=== PATIENT | male | born 1995 | race Caucasian/White ===

== ENCOUNTER → 2018-01-06 | Outpatient (CLI) | payer BC ==
[2018-01-06 08:34] LABS: HCT 48.9 % (39.0-53.0); HGB 16.3 gm/dL (13.0-17.5); MCH 30.4 pg (25.0-35.0); MCHC 33.4 g/dL (31.0-37.0); Mean Platelet Volume 7.3; Platelet Count 245 k/uL (150-450); RBC 5.38 m/uL (4.30-5.90); RDW 12.5 % (11.5-15.5); WBC 8.7 k/uL (3.8-10.6)
[2018-01-06 09:27] LABS: ALT 37 U/L (21-72); AST 15 U/L (17-59); Albumin 4.3 g/dL (3.5-5.0); Alkaline Phosphatase 68 U/L (38-126); Anion Gap 10 mmol/L; Blood Urea Nitrogen 14 mg/dL (9-20); Calcium 9.3 mg/dL (8.4-10.2); Carbon Dioxide 26 mmol/L (22-30); Chloride 104 mmol/L (98-107); Glucose 109 mg/dL (74-99); Potassium 4.4 mmol/L (3.5-5.1); Sodium 140 mmol/L (137-145); Total Bilirubin 0.6 mg/dL (0.2-1.3); Total Protein 6.7 g/dL (6.3-8.2)
[2018-01-06 09:58] LABS: Prostate Specific Antigen 0.94 ng/mL (0.00-4.00)
[2018-01-06 19:42] LABS: ACTH 7.83 pg/mL (0.00-45.99)
== END | disposition home or self-care (01) ==
LOC: LABWHC1 08:09
PROVIDERS: ATTEND Internal Medicine Endocrinology, Diabetes & Metabolism
DX: E29.1 Testicular hypofunction (principal)
CPT/HCPCS: 36415; 80053; 82024; 82533; 82670; 83001; 83002; 84146; 84153; 84403; 84443; 85027

== ENCOUNTER → 2019-03-22 | Outpatient (CLI) | payer BC ==
[2019-03-22 10:06] LABS: Basophils # (A) 0.2 k/uL (0-0.2); Basophils % (A) 2 %; Eosinophils # (A) 0.2 k/uL (0-0.7); Eosinophils % (A) 2 %; HCT 50.7 % (39.0-53.0); HGB 17.1 gm/dL (13.0-17.5); Lymphocytes # (A) 2.3 k/uL (1.0-4.8); Lymphocytes % (A) 25 %; MCH 31.5 pg (25.0-35.0); MCHC 33.8 g/dL (31.0-37.0); Mean Platelet Volume 6.7; Monocytes # (A) 0.5 k/uL (0-1.0); Monocytes % (A) 6 %; Neutrophils # (A) 6.1 k/uL (1.3-7.7); Neutrophils % (A) 65 %; Platelet Count 270 k/uL (150-450); RBC 5.45 m/uL (4.30-5.90); RDW 12.4 % (11.5-15.5); WBC 9.4 k/uL (3.8-10.6)
[2019-03-22 16:56] LABS: African American GFR (CKD) 97.5 (60.0-200.0); Albumin 4.8 g/dL (3.80-4.90); Albumin/Globulin Ratio 2.82 (1.60-3.17); Anion Gap 9.7 mmol/L (4.00-12.00); BUN/Creat Ratio 12.5 Ratio (12.00-20.00); Calcium 9.6 mg/dL (8.7-10.3); Carbon Dioxide 27.3 mmol/L (21.6-31.8); Chol/HDL Ratio 3.11; Globulin 1.7 g/dL (1.6-3.3); LDL Cholesterol,Calculated 86.4 mg/dL (0.0-131.0); Potassium 4.4 mmol/L (3.5-5.5); Total Bilirubin 1.3 mg/dL (0.2-1.2); Total Protein 6.5 g/dL (6.2-8.2); VLDL Calculation 12.6 mg/dL (5.00-40.00)
[2019-03-22 17:02] LABS: T4, Free (Free Thyroxine) 1.3 ng/dL (0.80-1.80)
[2019-03-22 23:42] LABS: Creatinine 24 Hour,Urine 1.75 g/24Hr (1.00-2.00)
[2019-03-24 10:56] LABS: Urine VMA/Creatinine 24 Hour 1.7 gm/24h (1.0-2.0)
[2019-03-24 11:52] LABS: Dopamine 24 Hr Urine 352 ug/day (65-400); Epinephrine 24 Hr Urine 7 ug/day (0-20); Norepinephrine 24 Hr Urine 46 ug/day (15-80); Total Catecholamines Urine 53 ug/day (15-100); Urine Creatinine,24 Hr 1.7 gm/24h (1.0-2.0)
[2019-03-24 14:07] LABS: Metanephrines 24 Hour,Urine 220 ug/day (52-341); Normetanephrine 24 Hour,Urine 211 ug/day (88-444); Total Metanephrines 24 Hour,Ur 431 ug/day (140-785)
== END | disposition home or self-care (01) ==
LOC: LABWHC1 09:29
PROVIDERS: ATTEND Nurse Practitioner Family
DX: I10 Essential (primary) hypertension (principal)
CPT/HCPCS: 36415; 80053; 80061; 81050; 82384; 82570; 83835; 84439; 84443; 84585; 85025; 93005

== ENCOUNTER → 2019-03-31 | Outpatient (CLI) | payer BC ==
--- NOTE | 2019-03-31 16:48 | US ---
EXAMINATION TYPE: US renal artery duplex complet DATE OF EXAM: 03/31/2019 COMPARISON: NONE CLINICAL HISTORY: I10 Hypertension. HTN per patient x 2 years and now controlled with medication; joyce ing medication also for asthma, TIA x multiple per patient age 15 (protein issue per patient). MEASUREMENTS: RENAL SIZE: Rt Kidney: 10.1 x 5.8 x 4.4cm Lt Kidney: 10.8 x 5.8 x 5.5c, RESISTANCE INDEX Right: 0.57 mid Left: 0.63 mid RA/AO RATIO (< 3.5 ) Right: 1.7 Left: 1.7 RA VELOCITY ( < 180 cm/s) Right: 119.4 cm/s mid Left: 118.8cm/s mid Aorta: size appears wnl Right kidney: no hydro nephrosis or masses seen Left Kidney:no hydro nephrosis or masses seen Mid Renal Arteries are mildly tortuous, but PSV is wnl bilaterally. Incidental Finding: Inferior right lobe hyperechoic round mass suggests hemangioma (possible capillar y hemangioma as is hyperechoic to liver). Other etiologies within the liver to account for this find ing are not excluded. If clinically indicated, MRI could be performed. IMPRESSION: 1. No suspicious renal artery stenosis. 2. Suspected hemangioma within the inferior right tip of the liver.
== END | disposition home or self-care (01) ==
LOC: RADUSWWP 07:10
PROVIDERS: ATTEND Family Medicine
DX: I10 Essential (primary) hypertension (principal)
CPT/HCPCS: 93975

== ENCOUNTER → 2019-04-24 | Outpatient (CLI) | payer BC ==
--- NOTE | 2019-04-24 09:19 | MM ---
Reason for exam: clinical finding. History: Took other hormone for 1 year beginning at age 17. Physical Findings: Nurse did not find any significant physical abnormalities on exam. MG Diagnostic Mammo w CAD PRAKASH Bilateral CC and MLO view(s) were taken. The breast tissue is heterogeneously dense. This may lower the sensitivity of mammography. Extensive bilateral gynenomastia. Scattered coarse calcifications throughout the right breast. Bilateral ultrasound recommended. These results were verbally communicated with the patient and result sheet given to the patient on 04/24/19. ASSESSMENT: Incomplete: need additional imaging evaluation, BI-RAD 0 RECOMMENDATION: Ultrasound of both breasts.
--- NOTE | 2019-04-24 09:23 | USB ---
Reason for exam: clinical finding. History: Took other hormone for 1 year beginning at age 17. US Breast Limited BILAT Right limited breast ultrasound including focal area of concern, retroareolar and axilla demonstrates a 1.2 x 0.7cm solid, hypoechoic lesion at the posterior nipple, subareolar gynecomastia. Left limited breast ultrasound including focal area of concern, retroareolar and axilla demonstrates a 1.5 x 0.5cm solid, hypoechoic lesion at the posterior nipple, subareolar gynecomastia. Scanned bilateral axilla and zone A of the breasts. No solid or cystic lesion. These results were verbally communicated with the patient and result sheet given to the patient on 04/24/19. ASSESSMENT: Benign, BI-RAD 2 RECOMMENDATION: Clinical management of both breasts and clinical follow up recommended. Manage on a clinical basis with regard to right nipple discharge. Patient can be rescanned if spontaneous nipple discharge occurs. RAFAEL
== END | disposition home or self-care (01) ==
LOC: RADMAMWWP 07:56
PROVIDERS: ATTEND Family Medicine
DX: N62 Hypertrophy of breast (principal); R92.8 Other abnormal and inconclusive findings on diagnostic imaging of breast
CPT/HCPCS: 77066

== ENCOUNTER 2019-04-29 13:19 | Emergency (ER) | payer BC ==
[2019-04-29 13:24] VITALS: RESP 18; TEMP 97.7
[2019-04-29] MEDS ORDERED: SODIUM CHLORIDE 0.9% 1,000 ML IV STA (13:43)
[2019-04-29 13:52] LABS: Basophils # (A) 0.4 k/uL (0-0.2); Basophils % (A) 3 %; Eosinophils # (A) 0.3 k/uL (0-0.7); Eosinophils % (A) 3 %; HGB 17.9 gm/dL (13.0-17.5); Lymphocytes # (A) 2.4 k/uL (1.0-4.8); Lymphocytes % (A) 21 %; MCH 31.7 pg (25.0-35.0); MCHC 34.4 g/dL (31.0-37.0); Mean Platelet Volume 6.3; Monocytes # (A) 0.6 k/uL (0-1.0); Monocytes % (A) 5 %; Neutrophils # (A) 7.6 k/uL (1.3-7.7); Neutrophils % (A) 66 %; Platelet Count 285 k/uL (150-450); RBC 5.65 m/uL (4.30-5.90); RDW 12.3 % (11.5-15.5); WBC 11.5 k/uL (3.8-10.6)
--- NOTE | 2019-04-29 13:55 | ED ---
Chest Pain HPI - General Chief Complaint: Chest Pain Stated Complaint: chest pressure Time Seen by Provider: 04/29/19 13:25 Source: patient Mode of arrival: ambulatory Limitations: no limitations - History of Present Illness Initial Comments: Patient is a 23-year-old male presenting to the emergency department with complaints of chest pressure that started approximately 2 hours prior to arrival. Patient states he has a history of hypertension and is currently taking lisinopril at night. Patient had recent visit with his inspector multifocal lens last week secondary to hypertension and was also started on amlodipine. Patient does have an echo scheduled. Patient states it feels like someone is putting pressure onto his side of his chest. Patient denies sharp pains, shortness of breath, pain into his arms or numbness and tingling in his arms. Patient has history of asthma that he does take a daily steroid inhaler. Patient states approximately 1-1/2 weeks ago he did have a cough but that seemed to have subsided. Patient denies fever, chills. Patient has past medical history of multiple TIAs when he was approximately 15 years of age. He has no residual side effects from these. Patient has no other pertinent past medical history. Upon arrival to ER, Patient is slightly tachycardia at 104, BP is 158/106. Temp is normal, RR 18, 98%t on room air. - Related Data Previous Rx's Medication Instructions Recorded Cephalexin [Keflex] 500 mg PO Q8HR #30 cap 12/27/15 Azithromycin [Zithromax Z-pack] 0 mg PO DIRECTED #1 pack 04/29/19 Allergies Allergy/AdvReac Type Severity Reaction Status Date / Time No Known Allergies Allergy Verified 04/29/19 13:24 Review of Systems ROS Statement: Those systems with pertinent positive or pertinent negative responses have been documented in the HPI. ROS Other: All systems not noted in ROS Statement are negative. EKG Findings - EKG Comments: EKG Findings:: Ventricular rate 108, WV interval 124, QTC 447. Sinus tachycardia, otherwise normal EKG. Compared to previous EKG on 03/22/2019. Past Medical History Past Medical History: CVA/TIA, Hypertension History of Any Multi-Drug Resistant Organisms: None Reported Past Surgical History: No Surgical Hx Reported Past Psychological History: No Psychological Hx Reported Smoking Status: Current every day smoker Past Alcohol Use History: Occasional Past Drug Use History: Marijuana General Exam - General Exam Comments Initial Comments: GENERAL: Well-appearing, well-nourished and in no acute distress. HEAD: Atraumatic, normocephalic. EYES: Pupils equal round and reactive to light, extraocular movements intact, sclera anicteric, conjunctiva are normal. ENT: TMs normal, nares patent, oropharynx clear without exudates. Moist mucous membranes. NECK: Normal range of motion, supple without lymphadenopathy or JVD. LUNGS: Breath sounds clear to auscultation bilaterally and equal. No wheezes rales or rhonchi. HEART: Tachycardia rate and rhythm without murmurs, rubs or gallops. No pain with palpation of the chest. ABDOMEN: Soft, nontender, normoactive bowel sounds. No guarding, no rebound. No masses appreciated. EXTREMITIES: Normal range of motion, no pitting or edema. No clubbing or cyanosis. NEUROLOGICAL: Cranial nerves II through XII grossly intact. Normal speech, normal gait. PSYCH: Normal mood, normal affect. SKIN: Warm, Dry, normal turgor, no rashes or lesions noted. Limitations: no limitations Course Vital Signs 04/29/19 04/29/19 04/29/19 13:21 14:36 15:39 Temperature 97.7 F Pulse Rate 104 H 78 78 Respiratory 18 18 18 Rate Blood Pressure 158/106 173/100 143/94 O2 Sat by Pulse 98 97 98 Oximetry 04/29/19 16:08 Temperature 97.7 F Pulse Rate 78 Respiratory 18 Rate Blood Pressure 143/90 O2 Sat by Pulse 98 Oximetry Chest Pain [facility] Patient is a 23-year-old male presenting with chest pressure 2 hours prior to arrival. Patient does of history of hypertension and TIAs as well as asthma. Blood pressure upon arrival was in the 150s. Patient was also complaining about cough that has been present for about a week and a half but seems to be improving. CBC shows slight white count 11.5, initial coags were high however on redraw they were normal. D-dimer is normal. CMP is normal. Troponin and repeat troponin both normal. EKG shows slightly tachycardia otherwise a normal EKG. Chest x-ray shows a mild right lower lobe infiltrate that can be considered early pneumonia. Patient will be started on azithromycin. Patient was given fluids as well as labetalol which did lower his BP. Patient is stable for discharge at this time. Patient will follow up with his PCP as needed. Return parameters were discussed with the patient and he verbalized understanding. Case discussed with Dr. Stone. Disposition Clinical Impression: Atypical chest pain, Pneumonia Disposition: HOME SELF-CARE Condition: Stable Instructions (If sedation given, give patient instructions): Community Acquired Pneumonia (ED) Additional Instructions: Please return to the Emergency Department if symptoms worsen or any other dean rns. Take antibiotic as prescribed. Follow-up with PCP in one week to ensure improvement in symptoms. Prescriptions: Azithromycin [Zithromax Z-pack] 0 mg PO DIRECTED #1 pack Is patient prescribed a controlled substance at d/c from ED?: No Referrals: Michael Rao Jr, DO [Primary Care Provider] - 1-2 days
[2019-04-29 14:01] LABS: ALT 37 U/L (21-72); AST 19 U/L (17-59); African American GFR (CKD) >90 (>60 ml/min/1.73 sqM); Albumin 4.6 g/dL (3.5-5.0); Alkaline Phosphatase 62 U/L (38-126); Anion Gap 10 mmol/L; Blood Urea Nitrogen 12 mg/dL (9-20); Calcium 9.6 mg/dL (8.4-10.2); Carbon Dioxide 24 mmol/L (22-30); Chloride 104 mmol/L (98-107); Glucose 122 mg/dL (74-99); Magnesium 1.9 mg/dL (1.6-2.3); Potassium 4.2 mmol/L (3.5-5.1); Sodium 138 mmol/L (137-145); Total Protein 7.4 g/dL (6.3-8.2)
--- NOTE | 2019-04-29 14:02 | XR ---
EXAMINATION TYPE: XR chest 2V DATE OF EXAM: 04/29/2019 HISTORY: Chest Pain. REFERENCE: Previous study dated 04/16/1996. FINDINGS: There is a very questionable infiltrate in the right lower lobe lung. The left lung is javier r. Pleural space are clear. The heart is not enlarged. IMPRESSION: I CANNOT EXCLUDE A DEVELOPING RIGHT LOWER LUNG PNEUMONIA.
[2019-04-29 14:18] LABS: INR 3.9 (<1.2); Prothrombin Time 37.1 sec (9.0-12.0)
[2019-04-29 14:36] VITALS: PULSE 78
[2019-04-29 14:50] LABS: D-Dimer <0.17 mg/L FEU (<0.60)
[2019-04-29 14:54] LABS: Partial Thromboplastin Time >200.0 sec (22.0-30.0)
[2019-04-29] MEDS ORDERED: LABETALOL 5 MG/ML VIAL MDV IVP STA (15:10)
[2019-04-29 15:29] LABS: INR 1.1 (<1.2); Partial Thromboplastin Time 25.3 sec (22.0-30.0); Prothrombin Time 11.7 sec (9.0-12.0)
[2019-04-29 16:09] VITALS: BP 143/90
== END 2019-04-29 16:08 | disposition home or self-care (01) ==
LOC: EC 13:19
DX: J18.9 Pneumonia, unspecified organism (principal); R00.0 Tachycardia, unspecified; I10 Essential (primary) hypertension; J45.909 Unspecified asthma, uncomplicated; F17.200 Nicotine dependence, unspecified, uncomplicated; Z86.73 Personal history of transient ischemic attack (TIA), and cerebral infarction without residual deficits
CPT/HCPCS: 36415; 71046; 80053; 83735; 84484; 85025; 85379; 85610; 85730; 93005; 96361; 96374; 99285

== ENCOUNTER → 2019-06-30 | Outpatient (CLI) | payer BC ==
--- NOTE | 2019-06-30 08:50 | US ---
EXAMINATION TYPE: US liver DATE OF EXAM: 06/30/2019 COMPARISON: Renal ultrasound March 31, 2019 CLINICAL HISTORY: R16.0 Hepatomegaly, not elsewhere classified. Possible liver hemangioma seen on rec ent kidney ultrasound EXAM MEASUREMENTS: Liver Length: 15.7 cm Gallbladder Wall: 0.2 cm CBD: 0.3 cm Right Kidney: 10.8 x 3.8 x 5.1 cm Pancreas: visualized portions wnl, tail limited by overlying midline bowel gas Liver: multiple hyperechoic lesions seen with largest measuring 2.4 x 1.3 x 2.0cm Gallbladder: wnl Evidence for sonographic Cuevas's sign: no CBD: wnl Right Kidney: wnl Visualized pancreas is unremarkable. Visualized liver is slightly heterogeneous with a subcentimeter hyperechoic focus in the hepatic dome presumed benign. There is additional 2.4 x 1.3 cm hyperechoic f ocus centrally in the liver seen on current study. No intrahepatic ductal dilatation. Prior visualize d 1.4 cm slightly hyperechoic lesion not clearly seen on current study. IMPRESSION: Confirmation of several small hyperechoic lesions favoring scattered benign hemangiomas u p to 2.4 cm in size. Liver protocol contrast-enhanced MRI can be performed to better evaluate and frantz racterize lesions if desired.
[2019-06-30 09:20] LABS: Bilirubin, Delta 0.2 mg/dL (0.0-0.2); Bilirubin,Unconjugated 0.6 mg/dL (0.0-1.1); Total Bilirubin 0.8 mg/dL (0.2-1.3); Total Protein 6.5 g/dL (6.3-8.2)
== END | disposition home or self-care (01) ==
LOC: RADUSWWP 07:54
PROVIDERS: ATTEND Internal Medicine Gastroenterology
DX: K76.9 Liver disease, unspecified (principal); R16.0 Hepatomegaly, not elsewhere classified
CPT/HCPCS: 36415; 76705; 80076

== ENCOUNTER → 2019-07-20 | Outpatient (CLI) | payer BC ==
--- NOTE | 2019-07-20 12:18 | XR ---
EXAMINATION TYPE: XR chest 2V DATE OF EXAM: 07/20/2019 COMPARISON: 04/29/2019 TECHNIQUE: PA and lateral views submitted. HISTORY: Chest pain FINDINGS: The lungs are clear and there is no pneumothorax, pleural effusion, or focal pneumonia. No overt fa ilure. IMPRESSION: 1. No acute process.
== END | disposition home or self-care (01) ==
LOC: RADXRMAIN 11:36
PROVIDERS: ATTEND Family Medicine
DX: J20.9 Acute bronchitis, unspecified (principal)
CPT/HCPCS: 71046

== ENCOUNTER → 2019-07-20 | Outpatient (CLI) | payer BC | END | disposition home or self-care (01) | LOC: LABWHC1 10:53 | PROVIDERS: ATTEND Nurse Practitioner Family | DX: I10 Essential (primary) hypertension (principal); J20.9 Acute bronchitis, unspecified; R07.1 Chest pain on breathing | CPT/HCPCS: 36415; 93005 ==

== ENCOUNTER → 2020-05-01 | Outpatient (CLI) | payer BC ==
--- NOTE | 2020-05-02 10:48 | USB ---
Reason for exam: clinical finding. History: Took other hormone for 1 year beginning at age 17. Indicated problem(s): pain in both breasts. Physical Findings: Nurse did not find any significant physical abnormalities on exam. US Breast BILAT Right complete breast ultrasound includes all four quadrants, the retroareolar region and axilla. Finding demonstrates a 0.9cm hypoechoic lesion at the posterior nipple, compatible with gynecomastia. Left complete breast ultrasound includes all four quadrants, the retroareolar region and axilla. Finding demonstrates no cystic or solid lesion seen. These results were verbally communicated with the patient and result sheet given to the patient on 05/01/20. ASSESSMENT: Benign, BI-RAD 2 RECOMMENDATION: Clinical management of both breasts. Manage patient on a clinical basis.
== END | disposition home or self-care (01) ==
LOC: RADUSWWP 14:19
PROVIDERS: ATTEND Surgery
DX: N64.4 Mastodynia (principal); N62 Hypertrophy of breast

== ENCOUNTER → 2024-05-11 | Outpatient (CLI) | payer SELFPAY ==
[2024-05-11 21:02] LABS: BUN/Creat Ratio 13.25 Ratio (12.00-20.00); Blood Urea Nitrogen 15.9 mg/dL (9.0-27.0); Calcium 9.5 mg/dL (8.7-10.3); Carbon Dioxide 27.9 mmol/L (21.6-31.8); Chloride 101 mmol/L (96-109); Glucose 83 mg/dL (70-110); Potassium 4.4 mmol/L (3.5-5.5); Sodium 141 mmol/L (135-145)
== END | disposition home or self-care (01) ==
LOC: LABWHC1 15:11
PROVIDERS: ATTEND Family Medicine
DX: I10 Essential (primary) hypertension (principal); Z20.2 Contact with and (suspected) exposure to infections with a predominantly sexual mode of transmission; R30.0 Dysuria; R10.9 Unspecified abdominal pain
CPT/HCPCS: 36415; 80048; 86780; 87491; 87591

== ENCOUNTER → 2024-05-11 | Outpatient (CLI) | payer SELFPAY ==
--- NOTE | 2024-05-14 00:10 | CT ---
EXAMINATION TYPE: CT abdomen pelvis wo con CT DLP: 446.5 mGycm, Automated exposure control for dose reduction was used. DATE OF EXAM: 05/11/2024 4:03 PM COMPARISON: Liver ultrasound 06/30/2019 CLINICAL INDICATION:Male, 28 years old with history of R30.0 DYSURIA R10.9 UNSPECIFIED ABDOMINAL PAIN ; Bilateral flank pain. Microscopic hematuria. TECHNIQUE: Standard CT of the abdomen and pelvis without IV or oral contrast. Lack of IV or oral co ntrast limits evaluation of solid and hollow organ viscera. Coronal and sagittal reformats were perfo rmed. FINDINGS: LOWER CHEST: Unremarkable noncontrast appearance ABDOMEN LIVER: Inferior right hepatic lobe tip 2.7 cm subtly hypodense lesion. Caudate lobe 2.7 cm centrally hypodense lesion. Findings correspond to ultrasound and are slightly larger in size. GALLBLADDER AND BILE DUCTS: Unremarkable noncontrast appearance PANCREAS: Unremarkable noncontrast appearance SPLEEN: Unremarkable noncontrast appearance ADRENAL GLANDS: Unremarkable noncontrast appearance. KIDNEYS AND URETERS: No evidence of hydronephrosis or renal calculus. No perinephric fat stranding or fluid collections are identified. No ureteral calculus identified. PELVIS BLADDER: Unremarkable noncontrast appearance REPRODUCTIVE: Unremarkable noncontrast appearance ABDOMEN & PELVIS STOMACH AND BOWEL: Stomach and duodenum are unremarkable. No focal bowel wall thickening or surroundi ng inflammatory changes. The appendix is within normal limits. No evidence of bowel obstruction. PERITONEUM: No evidence of pneumoperitoneum or free fluid. VASCULATURE: No evidence of aortic aneurysm. MUSCULOSKELETAL: No acute osseous abnormalities LYMPH NODES: No gross evidence for lymphadenopathy. SOFT TISSUE/ABDOMINAL WALL: Unremarkable IMPRESSION: 1. No acute abdominal/pelvic process within limitations of a noncontrast exam. No evidence for obstr uctive uropathy. 2. There are 2 subtly hypodense hepatic lesions identified which have increased in size from prior u ltrasound 06/30/2019. Probable benign hemangiomas. Can be confirmed with contrast-enhanced MRI abdome n (liver mass protocol) as clinically indicated. [facility], , 05/14/2024 12:08 AM
== END | disposition home or self-care (01) ==
LOC: RADCTMAIN 15:44
PROVIDERS: ATTEND Family Medicine
DX: R30.0 Dysuria (principal); R31.29 Other microscopic hematuria; I10 Essential (primary) hypertension; K76.9 Liver disease, unspecified; Z20.2 Contact with and (suspected) exposure to infections with a predominantly sexual mode of transmission
CPT/HCPCS: 74176

== ENCOUNTER → 2024-07-07 | Outpatient (CLI) | payer SELFPAY ==
--- NOTE | 2024-07-08 17:30 | MR ---
EXAMINATION TYPE: MR liver wo/w con DATE OF EXAM: 07/07/2024 2:42 PM INDICATION: Patient age:Male; 28 years old; Reason for study: R16.0 HEPATOMEGALY; PHH. COMPARISON: CT abdomen and pelvis 05/11/2024, ultrasound liver 06/30/2019 TECHNIQUE: Multiplanar multi-sequence imaging was performed without and with IV contrast. The patien t was given 9 ccs of Gadobutrol intravenously and dynamic imaging was performed. Post IV contrast sub traction images were also submitted for review. FINDINGS: LOWER CHEST: No gross irregularity. ABDOMEN Liver: Mildly enlarged measuring 18.7 cm in CC dimension. No fatty infiltration. Noncirrhotic patholo gy. Inferior right hepatic lobe T2 hyperintense thin-walled 1.9 cm lesion. Caudate lobe 3.1 cm T2 hyp erintense lesion. Additional T2 hyperintense thin-walled 1.2 cm lesion within the left hepatic lobe a nd a 0.7 cm T2 hyperintense thin-walled lesion within the right hepatic lobe. These all demonstrate l ow T1 signal intensity. These demonstrate peripheral nodular discontinuous enhancement with some cent ral fill in. Gallbladder and Bile ducts: Unremarkable. Pancreas: Unremarkable. Spleen: Unremarkable. Adrenal glands: Unremarkable. Kidneys: No hydronephrosis or suspicious enhancing mass. Minimal T2 hyperintense 9 mm right renal sim ple cyst. Stomach and Bowel: Unremarkable as visualized. Peritoneum: No evidence of pneumoperitoneum, free fluid, or adenopathy. Vasculature: Unremarkable. No aortic aneurysm. Abdominal wall: Unremarkable. Musculoskeletal: The osseous structures appear intact. IMPRESSION: 1. There are 4 distinct lesions within the liver with enhancement characteristics consistent with be nign hepatic hemangiomas. 2. Mild hepatomegaly. [facility], , 07/08/2024 5:28 PM
== END | disposition home or self-care (01) ==
LOC: RADMRIMAIN 13:26
PROVIDERS: ATTEND Internal Medicine Gastroenterology
DX: D18.09 Hemangioma of other sites (principal); R16.0 Hepatomegaly, not elsewhere classified
CPT/HCPCS: 74183; A9585

== ENCOUNTER 2024-09-21 16:44 | Emergency (ER) | payer SELFPAY ==
[2024-09-21 17:17] VITALS: TEMP 98.3
--- NOTE | 2024-09-21 17:32 | XR ---
EXAMINATION TYPE: XR knee complete RT DATE OF EXAM: 09/21/2024 5:28 PM COMPARISON: None. CLINICAL INDICATION: Male, 29 years old with history of pain, pain TECHNIQUE: XR knee complete RT views were obtained FINDINGS: There is no acute fracture/dislocation. The tri-compartment joint spaces appear within no rmal limits. Moderate suprapatellar joint effusion. IMPRESSION: There is no acute fracture or dislocation.ICD 10 NO FRACTURE, INITIAL EVALUATION [facility], , 09/21/2024 5:30 PM
--- NOTE | 2024-09-21 17:53 | ED ---
Extremity Problem HPI - General Chief complaint: Extremity Problem,Nontraumatic Stated complaint: R knee injury Time Seen by Provider: 09/21/24 17:21 Source: patient, RN notes reviewed Mode of arrival: ambulatory Limitations: no limitations - History of Present Illness Initial comments: This is a 29-year-old male who presents to the emergency department for right knee pain. Patient states that at work yesterday he was up on a scaffold and felt a pop in his right knee. He has since had pain over this area as well as swelling. He is still able to ambulate. He took ibuprofen earlier today which did help with his symptoms. MD Complaint: extremity pain, extremity swelling - Related Data Previous Rx's Medication Instructions Recorded Cephalexin [Keflex] 500 mg PO Q8HR #30 cap 12/27/15 Azithromycin [Zithromax Z-pack (6 0 mg PO DIRECTED #1 pack 04/29/19 tabs)] Ketorolac [Toradol] 10 mg PO Q6HR PRN #15 tab 09/21/24 Allergies Allergy/AdvReac Type Severity Reaction Status Date / Time No Known Allergies Allergy Verified 09/21/24 17:17 Review of Systems ROS Statement: Those systems with pertinent positive or pertinent negative responses have been documented in the HPI. ROS Other: All systems not noted in ROS Statement are negative. Past Medical History Past Medical History: CVA/TIA, Hypertension History of Any Multi-Drug Resistant Organisms: None Reported Past Surgical History: No Surgical Hx Reported Past Psychological History: No Psychological Hx Reported Smoking Status: Never smoker Past Alcohol Use History: Occasional Past Drug Use History: Marijuana General Exam Limitations: no limitations General appearance: alert, in no apparent distress Head exam: Present: atraumatic, normocephalic, normal inspection Respiratory exam: Present: normal lung sounds bilaterally. Absent: respiratory distress, wheezes, rales, rhonchi, stridor Cardiovascular Exam: Present: regular rate, normal rhythm Extremities exam: Present: other (Mild swelling and tenderness over the right knee. Full range of motion. 2+ DP and PT pulses) Neurological exam: Present: alert, oriented X3, CN II-XII intact Psychiatric exam: Present: normal affect, normal mood Course Vital Signs 09/21/24 09/21/24 17:14 18:09 Temperature 98.3 F Pulse Rate 90 81 Respiratory 18 16 Rate Blood Pressure 181/108 171/96 O2 Sat by Pulse 97 99 Oximetry Medical Decision Making - Medical Decision Making This is a 29-year-old male who presents to the emergency department for a right knee injury. Was pt. sent in by a medical professional or institution? @ -No Did you speak to anyone other than the patient for history? @ -No Did you review nursing and triage notes? @ -Yes, and I agree, it is accurate with regards to the patient's symptoms. Were old charts reviewed? @ -No Differential Diagnosis? @ -Differential Musculoskeletal Muscular strain, contusion, ligament sprain, fracture, arthritis, septic arthritis, bursitis, cellulitis, muscle spasm, nerve compression, DVT, arterial occlusion, herpes zoster, electrolyte abnormality, tumor.... This is not meant to be in all inclusive list EKG interpreted by me (3pts min.)? @ -Not obtained X-rays interpreted by me (1pt min.)? @ -X-ray of the right knee obtained. My interpretation identifies no acute fractures. CT interpreted by me (1pt min.)? @ -Not obtained U/S interpreted by me (1pt. min.)? @ -Not obtained What testing was considered but not performed? (CT, X-rays, U/S, labs)? Why? @ -None What meds were considered but not given? Why? @ -None Did you discuss the management of the patient with other professionals? @ -No Did you reconcile home meds? @ -No Was smoking cessation discussed for >3mins.? @ -No Was critical care preformed (if so, how long)? @ -No Were there social determinants of health that impacted care today? How? (Homelessness, low income, unemployed, alcoholism, drug addiction, transportation, low edu. Level, literacy, decrease access to med. care, group home, rehab)? @ -No Was there de-escalation of care discussed even if they declined? (Discuss DNR or withdrawal of care, Hospice)? @ -No What co-morbidities impacted this encounter? (DM, HTN, Smoking, COPD, CAD, Cancer, CVA, Hep., AIDS, mental health diagnosis, sleep apnea, morbid obesity)? @ -None Was patient admitted / discharged? @ -Discharged. X-ray of the right knee obtained revealing a suprapatellar joint effusion. No acute osseous abnormalities were identified. He declined the need for pain medication in the emergency department. He also declined the need for crutches. Knee immobilizer applied. Toradol prescribed for pain control. We also discussed ice and elevation as well as follow-up with his PCP or orthopedics. Patient discharged home in stable condition. Case discussed with ED attending Dr. Castaneda. Return precautions reviewed in depth, the patient is instructed to return to the emergency department with any new, worsening, or concerning symptoms. Patient verbalized understanding. Undiagnosed new problem with uncertain prognosis? @ -None Drug Therapy requiring intensive monitoring for toxicity (Heparin, Nitro, Insulin, Cardizem)? @ -None Were any procedures done? @ -None Diagnosis/symptom? @ -Right knee sprain, joint effusion Acute, or Chronic, or Acute on Chronic? @ -Acute Uncomplicated (without systemic symptoms) or Complicated (systemic symptoms)? @ -Uncomplicated Side effects of treatment? @ -None Exacerbation, Progression, or Severe Exacerbation] @ -Not applicable Poses a threat to life or bodily function? @ -No - Radiology Data Radiology results: report reviewed, image reviewed Disposition Clinical Impression: Right knee sprain, Knee joint effusion Disposition: HOME SELF-CARE Instructions (If sedation given, give patient instructions): Knee Sprain (ED), Swollen Knee Joint (ED) Additional Instructions: Return to the emergency department with any new, worsening, or concerning symptoms. Take the Toradol with Tylenol as needed for pain relief. If you choose to take the Toradol, do not take any other anti-inflammatories such as ibuprofen, take one or the other. Apply ice and elevate the leg. Use the knee immobilizer as needed for support. Follow up with your primary care provider in 1-2 days. Prescriptions: Ketorolac [Toradol] 10 mg PO Q6HR PRN #15 tab PRN Reason: Pain Is patient prescribed a controlled substance at d/c from ED?: No Referrals: Michael Rao Jr, DO [Primary Care Provider] - 1-2 days Time of Disposition: 17:53
[2024-09-21 18:10] VITALS: BP 171/96; PULSE 81; RESP 16
== END 2024-09-21 18:10 | disposition home or self-care (01) ==
LOC: EC 16:44
DX: S83.61XA Sprain of the superior tibiofibular joint and ligament, right knee, initial encounter (principal); X58.XXXA Exposure to other specified factors, initial encounter; Y99.0 Civilian activity done for income or pay
CPT/HCPCS: 99283 ×2; 73562; L1830 ×2

== ENCOUNTER 2025-01-27 13:04 | Emergency (ER) | payer SELFPAY ==
--- NOTE | 2025-01-27 14:34 | ED ---
General Adult HPI - General Chief complaint: Skin/Abscess/Foreign Body Stated complaint: Rash all over body Time Seen by Provider: 01/27/25 13:19 Source: patient, RN notes reviewed Mode of arrival: ambulatory Limitations: no limitations - History of Present Illness Initial comments: This is a 29-year-old male with history of CVA and hypertension presenting for diffuse rash x 3 days. Patient notes patches of a rash of unknown origin with associated itching. Endorses use of hydrocortisone with minimal/no relief. Denies swelling of lips, tongue, throat, dyspnea, stridor, food/medication allergy, change in soap/detergent. Onset/Timin -: days(s) Location: face, abdomen, left, lower extremity Associated Symptoms: denies other symptoms - Related Data Previous Rx's Medication Instructions Recorded Cephalexin [Keflex] 500 mg PO Q8HR #30 cap 12/27/15 Azithromycin [Zithromax Z-pack (6 0 mg PO DIRECTED #1 pack 04/29/19 tabs)] Ketorolac [Toradol] 10 mg PO Q6HR PRN #15 tab 09/21/24 Triamcinolone 0.1% Cream [Kenalog 1 applicatio TOPICAL BID #30 gram 01/27/25 0.1% Cream] predniSONE 10 mg PO DIRECTED #30 tab 01/27/25 Allergies Allergy/AdvReac Type Severity Reaction Status Date / Time No Known Allergies Allergy Verified 01/27/25 13:11 Review of Systems ROS Statement: Those systems with pertinent positive or pertinent negative responses have been documented in the HPI. ROS Other: All systems not noted in ROS Statement are negative. Past Medical History Past Medical History: CVA/TIA, Hypertension History of Any Multi-Drug Resistant Organisms: None Reported Past Surgical History: No Surgical Hx Reported Past Psychological History: No Psychological Hx Reported Smoking Status: Never smoker Past Alcohol Use History: Occasional Past Drug Use History: Marijuana General Exam Limitations: no limitations General appearance: alert, in no apparent distress Head exam: Present: atraumatic, normocephalic, normal inspection Eye exam: Present: normal appearance, PERRL, EOMI. Absent: scleral icterus, conjunctival injection, periorbital swelling ENT exam: Present: normal exam, mucous membranes moist Neck exam: Present: normal inspection. Absent: tenderness, meningismus, lymphadenopathy Respiratory exam: Present: normal lung sounds bilaterally. Absent: respiratory distress, wheezes, rales, rhonchi, stridor Cardiovascular Exam: Present: regular rate, normal rhythm, normal heart sounds. Absent: systolic murmur, diastolic murmur, rubs, gallop, clicks GI/Abdominal exam: Present: soft, normal bowel sounds. Absent: distended, tenderness, guarding, rebound, rigid Extremities exam: Present: normal inspection, full ROM, normal capillary refill. Absent: tenderness, pedal edema, joint swelling, calf tenderness Back exam: Present: normal inspection Neurological exam: Present: alert, oriented X3, CN II-XII intact Psychiatric exam: Present: normal affect, normal mood Skin exam: Present: warm, dry, intact, normal color, rash (Maculopapular rash with wheals/urticaria noted on left AC, inferior to right ear and across abdomen. Negative blistering, vesicles, excoriation, sloughing, warmth, tenderness), urticaria. Absent: vesicles Course Vital Signs 01/27/25 01/27/25 13:10 16:53 Temperature 98.1 F 97.9 F Pulse Rate 95 84 Respiratory 20 18 Rate Blood Pressure 172/109 172/123 O2 Sat by Pulse 99 98 Oximetry Medical Decision Making - Medical Decision Making Was pt. sent in by a medical professional or institution (Dr. PA, [employer], urgent care, hospital, or retirement...) When possible be specific @ -No Did you speak to anyone other than the patient for history (EMS, parent, family, police, friend...)? What history was obtained from this source @ -No Did you review nursing and triage notes (agree or disagree)? Why? @ -I reviewed and agree with nursing and triage notes Were old charts reviewed (outside hosp., previous admission, EMS record, old EKG, old radiological studies, urgent care reports/EKG's, retirement records)? Report findings @ -No old charts were reviewed Differential Diagnosis (chest pain, altered mental status, abdominal pain women, abdominal pain men, vaginal bleeding, weakness, fever, dyspnea, syncope, headache, dizziness, GI bleed, back pain, seizure, CVA, palpatations, mental health, musculoskeletal)? @ -Contact dermatitis, allergic urticaria, atopic dermatitis, psoriasis, nummular eczema, cellulitis, erysipelas, this is not an exhaustive list EKG interpreted by me (3pts min.). @ -Not done X-rays interpreted by me (1pt min.). @ -None done CT interpreted by me (1pt min.). @ -None done U/S interpreted by me (1pt. min.). @ -None done What testing was considered but not performed or refused? (CT, X-rays, U/S, labs)? Why? @ -None What meds were considered but not given or refused? Why? @ -None Did you discuss the management of the patient with other professionals (professionals i.e. , PA, [employer], lab, RT, psych nurse, social work msw, art preparator, teacher, community chest officer, binder caser)? Give summary @ -No Was smoking cessation discussed for >3mins.? @ -No Was critical care preformed (if so, how long)? @ -No Were there social determinants of health that impacted care today? How? (Homelessness, low income, unemployed, alcoholism, drug addiction, t ransportation, low edu. Level, literacy, decrease access to med. care, [facility], rehab)? @ -No Was there de-escalation of care discussed even if they declined (Discuss DNR or withdrawal of care, Hospice)? DNR status @ -No What co-morbidities impacted this encounter? (DM, HTN, Smoking, COPD, CAD, Cancer, CVA, ARF, Chemo, Hep., AIDS, mental health diagnosis, sleep apnea, morbid obesity)? @ -None Was patient admitted / discharged? Hospital course, mention meds given and route, prescriptions, significant lab abnormalities, going to OR and other pertinent info. @ -Based upon HPI and physical exam, this will be treated as contact dermatitis. Patient provided IM Solu-Medrol with triamcinolone cream and prednisone sent to patient's pharmacy. Patient provided p.o. metoprolol, stating he did not take his metoprolol today for hypertension. Advised follow-up with PCP/dermatology regarding rash and blood pressure. Discussed patient with Dr. Stone. Undiagnosed new problem with uncertain prognosis? @ -No Drug Therapy requiring intensive monitoring for toxicity (Heparin, Nitro, Insulin, Cardizem)? @ -No Were any procedures done? @ -No Diagnosis/symptom? @ -Contact dermatitis Acute, or Chronic, or Acute on Chronic? @ -Acute Uncomplicated (without systemic symptoms) or Complicated (systemic symptoms)? @ -Uncomplicated Side effects of treatment? @ -No Exacerbation, Progression, or Severe Exacerbation? @ -No Poses a threat to life or bodily function? How? (Chest pain, [place], [place], pneumonia, PE, COPD, DKA, ARF, appy, cholecystitis, CVA, Diverticulitis, Homicidal, Suicidal, threat to staff... and all critical care pts) @ -No Disposition Clinical Impression: Contact dermatitis Disposition: HOME SELF-CARE Condition: Good Instructions (If sedation given, give patient instructions): Contact Dermatitis (ED) Additional Instructions: Keep rashes clean with antibacterial soap and water at least twice daily. May apply steroid cream followed by emollient such as Vaseline or Aquaphor to protect/insulate skin. Follow-up with PCP/dermatology for ongoing evaluation and management of rash. Prescriptions: Triamcinolone 0.1% Cream [Kenalog 0.1% Cream] 1 applicatio TOPICAL BID #30 gram predniSONE 10 mg PO DIRECTED #30 tab Is patient prescribed a controlled substance at d/c from ED?: No Referrals: Michael Rao Jr, DO [Primary Care Provider] - 1-2 days Daisha Villanueva MD [STAFF PHYSICIAN] - 1-2 days Time of Disposition: 14:34
[2025-01-27] MEDS: methylPREDNISolone SOD SUCCI 125 MG/2 ML VIAL IM ONE (15:14)
[2025-01-27] MEDS: METOPROLOL TARTRATE 25 MG TAB PO STA (16:31)
[2025-01-27 16:56] VITALS: BP 172/123; PULSE 84; RESP 18; TEMP 97.9
== END 2025-01-27 16:56 | disposition home or self-care (01) ==
LOC: EC 13:04
DX: L25.9 Unspecified contact dermatitis, unspecified cause (principal)
CPT/HCPCS: 99282; 96372; J2919